=== PATIENT | female | born 1990 | race Caucasian/White ===

== ENCOUNTER → 2019-01-04 | Outpatient (CLI) | payer OTHER ==
[2017-04-17 19:20] VITALS: BMI 26.0
[~2019-01-04] MED LIST: ACET-1718 PO; CEPH500T7 PO; HYDR-385 PO; HYDR-653 PO; IBUP800T37 PO; PREN-127 PO; SULF-198 PO
[2019-01-04 12:18] LABS: PLATELET COUNT, AUTOMATED 219 K/uL (150-450)
== END ==
LOC: LAB 07:57
PROVIDERS: ATTEND Student in an Organized Health Care Education/Training Program
DX: Z34.91 Encounter for supervision of normal pregnancy, unspecified, first trimester (principal)
CPT/HCPCS: 36415; 81001; 85025; 86592; 86703; 86762; 86850; 86900; 86901; 87088; 87340

== ENCOUNTER → 2019-03-15 | Outpatient (CLI) | payer OTHER ==
[2017-04-17 19:20] VITALS: BMI 26.0
== END ==
LOC: LAB 11:12
PROVIDERS: ATTEND Obstetrics & Gynecology
DX: Z34.82 Encounter for supervision of other normal pregnancy, second trimester (principal)
CPT/HCPCS: 36415; 81511